=== PATIENT | female | born 1935 | race Caucasian/White ===

== ENCOUNTER 2022-06-01 17:43 | Emergency (ER) | payer OTHER, MEDICAID ==
[~2022-06-01] VITALS: Ht 165.1 cm; Wt 61.2 kg
[2022-06-01 18:00] VITALS: BP 146/70
--- NOTE | 2022-06-01 18:07 | NUR ---
86/F BIBA FROM [facility] D/T RASH NOTED TO RIGHT SIDE OF FACE BY STAFF. PER EMS, PT AT BASELINE GCS 14 WITH AAO2. PT FACESHEET OR CLINICALS NOT PROVIDED. UNK HX OR ALLERGY. PT IN NO ACUTE DISTRESS, AMBULATORY. ON PILOT CAPTAIN PMH: UNKNOWN.
--- NOTE | 2022-06-01 18:14 | NUR ---
SPOKE WITH OTTONIEL SCHMIDT. PER STAFF, WILL FAX OVER CLINICALS.
--- NOTE | 2022-06-01 18:15 | NUR ---
SIX ROUND RED BUMPS NOTED TO RIGHT SIDE OF HEAD. ERMD AWARE
[2022-06-01] MEDS ORDERED: CEPH-588 PO (18:36)
[2022-06-01] MEDS ORDERED: HYD1C TP (18:36)
--- NOTE | 2022-06-01 18:47 | NUR ---
ATTEMPTED TO GIVE REPORT TO [facility] FOR PT DC. NO ANSWER X2.
--- NOTE | 2022-06-01 18:51 | NUR ---
SPOKE WITH SILAS FROM [facility] FOR DC. PER [facility] TRANSPORTATION ARRANGEMENT NOT AVAILABLE
--- NOTE | 2022-06-01 19:11 | NUR ---
Patient able to walk with steady gait and able to sit well.
--- NOTE | 2022-06-01 19:34 | NUR ---
Spoke with [facility] staff, Patient will transport to facility via [employer] and request assitant when patient will arrive to facility.
[2022-06-01 20:11] VITALS: BP 132/70
--- NOTE | 2022-06-01 20:11 | NUR ---
Patient D/C to facility and transfer back via [employer].
== END 2022-06-01 20:11 | disposition home or self-care (01) ==
LOC: MED 17:43
DX: S00.86XA Insect bite (nonvenomous) of other part of head, initial encounter (principal); L03.211 Cellulitis of face; Z79.899 Other long term (current) drug therapy; W57.XXXA Bitten or stung by nonvenomous insect and other nonvenomous arthropods, initial encounter; Y93.89 Activity, other specified; Y92.89 Other specified places as the place of occurrence of the external cause; Y99.8 Other external cause status
CPT/HCPCS: 99283

== ENCOUNTER 2022-06-20 15:46 | Inpatient (IN) | payer OTHER, MEDICAID ==
[~2022-06-20] VITALS: Ht 177.8 cm; Wt 67.6 kg
[~2022-06-20 15:46] MED LIST: CEPH-588 PO; HYD1C TP
[2022-06-20 16:27] VITALS: BP 143/71
--- NOTE | 2022-06-20 16:32 | NUR ---
BIBA to bed 14
--- NOTE | 2022-06-20 16:35 | NUR ---
86 y/o F BIBA from [facility] referred for UTI. Per EMS, staff states vaginal bleeding. Unable to complete assessment d/t mentation. A&Ox1 to name normal baseline d/t dementia. Non-ambulatory, diapered. PMH: HTN, HLD, Afib, CHF, CKD, hypothyroidism, dementia, depression Meds: Tylenol, levothyroxine, metoprolol Allergies: bactrim, sulfa
--- NOTE | 2022-06-20 16:39 | NUR ---
Called [facility] spoke with Sapna who states she may possibly have a UTI; states staff noted vaginal bleeding while changing her pad earlier today. Staff states patient without pain prior to transport.
[2022-06-20 18:07] LABS: BASOPHILS # (AUTO) 0.1 K/uL (0.00-0.22); BASOPHILS % (AUTO) 1.4 % (0.0-2.0); EOSINOPHILS # (AUTO) 0.2 K/uL (0-0.4); EOSINOPHILS % (AUTO) 2.7 % (0.0-4.0); HEMATOCRIT 39.7 % (36-48); HEMOGLOBIN 13.5 g/dL (12.0-16.0); LYMPHOCYTES # (AUTO) 2.5 K/uL (2.5-16.5); LYMPHOCYTES % (AUTO) 36.5 % (20.5-51.1); MEAN CORPUSCULAR HEMOGLOBIN 32 pg (27-31); MEAN CORPUSCULAR HGB CONC 34 g/dL (33-37); MEAN CORPUSCULAR VOLUME 93.1 fL (80-94); MONOCYTES # (AUTO) 0.7 K/uL (0.8-1.0); MONOCYTES % (AUTO) 10.2 % (1.7-9.3); NEUTROPHILS # (AUTO) 3.3 K/uL (1.8-7.7); NEUTROPHILS % (AUTO) 49.2 % (42.2-75.2); PLATELET COUNT (AUTO) 265 K/uL (140-450); RED BLOOD CELL COUNT(AUTO) 4.26 MIL/uL (4.20-5.40); RED CELL DISTRIBUTION WIDTH 13.9 % (11.6-13.7); WHITE BLOOD COUNT (AUTO) 6.8 K/uL (4.8-10.8)
--- NOTE | 2022-06-20 18:20 | NUR ---
Catherine hygiene performed; diaper changed and new chucks applied. All pt needs met.
--- NOTE | 2022-06-20 18:20 | NUR ---
# 6 FR Straight catheter with utilizing sterile technique. Immediate return of 4 ml clear/brown urine noted. Pt tolerated procedure well.
[2022-06-20 18:23] LABS: ANION GAP 14.2 (8-16); CARBON DIOXIDE 22.6 mmol/L (21-32); CHLORIDE 109 mmol/L (98-107); CREATININE 0.7 mg/dL (0.6-1.3); GLUCOSE 87 mg/dL (74-106); POTASSIUM 3.8 mmol/L (3.5-5.1); SODIUM SERUM 142 mmol/L (136-145); UREA NITROGEN, BLOOD 19 mg/dL (7-18)
--- NOTE | 2022-06-20 18:27 | NUR ---
MURPHY handed to CPT Bibi at ER bedside
[2022-06-20 18:40] LABS: APPEARANCE,URINE CLOUDY (CLEAR); BILIRUBIN,URINE 2+ (NEGATIVE); BLOOD, URINE 3+ (NEGATIVE); COLOR,URINE RED (YELLOW); LEUKOCYTE ESTERASE ,URINE 2+ (NEGATIVE); NITRITE, URINE POSITIVE (NEGATIVE); PH,URINE 7.5 (5.0-9.0); UGLUCOSE TRACE (NEGATIVE)
[2022-06-20 18:53] LABS: RBC,URINE 20-50 /HPF (0-5); WBC,URINE 20-60 /HPF (0-5)
[2022-06-20 18:54] LABS: OTHER CASTS, URINE None Seen /LPF (None Seen)
--- NOTE | 2022-06-20 19:27 | NUR ---
Report given to DAVID Chamberlain.
[2022-06-20] MEDS ORDERED: cefTRIAXone 1,000 MG VIAL ONE (19:48)
[2022-06-20] MEDS ORDERED: OLANZapine 10 MG VIAL IM ONE (21:05)
[2022-06-20] MEDS ORDERED: ONDANSETRON 4 MG/2 ML VIAL IVP PRN (21:10)
[2022-06-20] MEDS ORDERED: POTASSIUM CHLORIDE 10 MEQ TABER PO PRN (21:10)
[2022-06-20] MEDS ORDERED: ZOLPIDEM 10 MG TAB PO PRN (21:10)
[2022-06-20] MEDS ORDERED: MORPHINE SULFATE 2 MG/ML SYR IVP PRN (21:10)
[2022-06-20] MEDS ORDERED: MAG SULF 2000 MG/WATER PREMIX 50 ML IV PRN (21:10)
[2022-06-20] MEDS ORDERED: ACETAMINOPHEN 325 MG TAB PO PRN (21:10)
[2022-06-20] MEDS ORDERED: DOCUSATE SODIUM 100 MG GELCAP PO PRN (21:10)
[2022-06-20] MEDS ORDERED: hydrALAZINE 20 MG/ML VIAL IVP PRN (21:15)
[2022-06-20] MEDS ORDERED: WATER STERILE 10 ML MC ONE (21:47)
[2022-06-20 22:15] VITALS: BP 157/77
--- NOTE | 2022-06-20 22:22 | NUR ---
GET THE REPORT FROM ER NURSE BELTRAN , PATIENT IS ALERT ORIENTED X 1 , ALL FALL PRECAUTION MEASURE ARE IN PLACE, VITAL SIGN IS WITHIN THE NORMAL RANGE, NO ANY COMPLAIN OF PAIN OR SHORTNESS OF BREATH AT THIS TIME, CALL LIGHT IS WITHIN THE REACH, WILL CONTINUE TO MONITOR PATIENT.
--- NOTE | 2022-06-20 22:32 | NUR ---
Patient will be admitted to care of Dr. Thibodeaux. Admited to telemetry. Will go to room 121A. Belongings list completed. bedside report given to DAVID Black.
[2022-06-20] MEDS: LORazepam 2 MG/ML VIAL IVP PRN (23:20)
--- NOTE | 2022-06-20 23:23 | NUR ---
PATIENT IS GETTING AGITATED , GAVE ATIVAN 2MG IV PRN PER DOCTOR ORDER, VITAL SIGN IS WITHIN THE NORMAL RANGE,CALL LIGHT IS WITHIN THE REACH, WILL CONTINUE TO MONITOR PATIENT.
[2022-06-21] VITALS: BP 155/78
--- NOTE | 2022-06-21 00:55 | NUR ---
PATIENT IS LYING ON BED, NO ANY COMPLAIN OF PAIN OR SHORTNESS OF BREATH AT THIS TIME, VITAL SIGN IS WITHIN THE NORMAL RANGE, CALL LIGHT IS WITHIN THE REACH, WILL CONTINUE TO MONITOR PATIENT.
[2022-06-21 04:00] VITALS: BP 149/68
--- NOTE | 2022-06-21 04:54 | NUR ---
REASSESS PATIENT BLOOD PRESSURE AND CAME BACK NORMAL, CALL LIGHT IS WITHIN THE REACH, WILL CONTINUE TO MONITOR PATIENT.
--- NOTE | 2022-06-21 04:58 | NUR ---
VITAL SIGN IS WITHIN THE NORMAL RANGE, ALL SCHEDULE MEDICATION IS GIVEN PER DOCTOR ORDER, CALL LIGHT IS WITHIN THE REACH, WILL CONTINUE TO MONITOR PATIENT.
[2022-06-21 06:08] LABS: BASOPHILS # (AUTO) 0.1 K/uL (0.00-0.22); BASOPHILS % (AUTO) 1.2 % (0.0-2.0); EOSINOPHILS # (AUTO) 0.2 K/uL (0-0.4); EOSINOPHILS % (AUTO) 2.5 % (0.0-4.0); HEMATOCRIT 41.6 % (36-48); HEMOGLOBIN 14.1 g/dL (12.0-16.0); LYMPHOCYTES # (AUTO) 2.2 K/uL (2.5-16.5); LYMPHOCYTES % (AUTO) 28.4 % (20.5-51.1); MEAN CORPUSCULAR HEMOGLOBIN 32 pg (27-31); MEAN CORPUSCULAR HGB CONC 34 g/dL (33-37); MEAN CORPUSCULAR VOLUME 93.1 fL (80-94); MONOCYTES # (AUTO) 0.7 K/uL (0.8-1.0); MONOCYTES % (AUTO) 9.4 % (1.7-9.3); NEUTROPHILS # (AUTO) 4.6 K/uL (1.8-7.7); NEUTROPHILS % (AUTO) 58.5 % (42.2-75.2); PLATELET COUNT (AUTO) 269 K/uL (140-450); RED BLOOD CELL COUNT(AUTO) 4.47 MIL/uL (4.20-5.40); RED CELL DISTRIBUTION WIDTH 14.3 % (11.6-13.7); WHITE BLOOD COUNT (AUTO) 7.9 K/uL (4.8-10.8)
[2022-06-21 06:18] LABS: ANION GAP 15.3 (8-16); CHLORIDE 110 mmol/L (98-107); CREATININE 0.8 mg/dL (0.6-1.3); GLUCOSE 95 mg/dL (74-106); POTASSIUM 3.3 mmol/L (3.5-5.1); SODIUM SERUM 147 mmol/L (136-145); UREA NITROGEN, BLOOD 15 mg/dL (7-18)
--- NOTE | 2022-06-21 07:30 | NUR ---
ENDORSE PATIENT TO DAY RN FOR CONTINUITY OF CARE. PATIENT STABLE. SIGNING OFF.
[2022-06-21 08:00] VITALS: BP 158/69
[2022-06-21] MEDS ORDERED: NACL 0.45% 1,000 ML IV ONE (10:05)
[2022-06-21] MEDS ORDERED: VITB12 PO (10:42)
[2022-06-21] MEDS ORDERED: DABI150C PO (10:42)
[2022-06-21] MEDS ORDERED: LACT-103 PO (10:42)
[2022-06-21] MEDS ORDERED: ACET-10509 PO (10:42)
[2022-06-21] MEDS ORDERED: ALUM355S50 PO (10:42)
[2022-06-21] MEDS ORDERED: MIRABULK PO (10:42)
[2022-06-21] MEDS ORDERED: LEVO0.083 PO (10:42)
[2022-06-21] MEDS ORDERED: METO50TE2 PO (10:42)
[2022-06-21] MEDS ORDERED: CHOL500040 PO (10:42)
[2022-06-21] MEDS: LORazepam 2 MG/ML VIAL IVP PRN (10:47)
--- NOTE | 2022-06-21 10:48 | NUR ---
CONTINUOUSLY TRYING TO GET OUT OF BED. ATIVAN PRN GIVEN AT THIS TIME. WILL CONTINUE TO MONITOR.
--- NOTE | 2022-06-21 11:02 | NUR ---
PATIENT HAS BEEN SCREENED AND CATEGORIZED MODERATE NUTRITION RISK. PATIENT WILL BE SEEN WITHIN 3-5 DAYS OF ADMISSION. 06/23/[address]
[2022-06-21] MEDS ORDERED: HYDROCORTISONE 1% CRM 30 GM TUBE TP PRN (11:15)
[2022-06-21 12:00] VITALS: BP 134/71
--- NOTE | 2022-06-21 14:00 | NUR ---
PATIENT LYING DOWN IN BED SLEEPING, NO DISTRESS NOTED. WILL CONTINUE TO MONITOR.
[2022-06-21 16:00] VITALS: BP 122/69
--- NOTE | 2022-06-21 17:11 | NUR ---
K: 3.3, POTASSIUM 40 MEQ PO PRN GIVEN AT THIS TIME. WILL CONTINUE TO MONITOR.
--- NOTE | 2022-06-21 19:34 | NUR ---
RECEIVED PT ENDORSEMENT FROM DAY SHIFT NURSE FOR CONTINUITY OF CARE. PT IS ON BED, VERBALLY RESPONSIVE AND CONFUSE. PT IS ON CARDIAC DIET. PT IS INCONTINENT. IV SALINE LOCK ON LEFT FOREARM 20G INTACT AND PATENT. IV FLUID 1/2 NS INFUSING WELL AT 100ML/HR. NO SIGN/SYMPTOM OF INFECTION. CONTINUE MONITORING.
--- NOTE | 2022-06-21 19:35 | NUR ---
GAVE REPORT TO DRILL SHARPENER NURSE FOR CONTINUITY OF CARE. PATIENT IN STABLE CONDITION.
[2022-06-21 20:00] VITALS: BP 152/93
[2022-06-21] MEDS: DABIGATRAN ETEXILATE MESYLAT 75 MG CAP PO SCH (21:55)
--- NOTE | 2022-06-21 22:00 | NUR ---
PT IS NON COOPERATIVE IN TAKING MEDICATION BUT AGREE TO TAKE MEDICATION WITH PUDDING.
[2022-06-22] VITALS: BP 126/90
--- NOTE | 2022-06-22 00:40 | NUR ---
PT IS SLEEPING WELL. NO SOB OR DISTRESS.
[2022-06-22 04:00] VITALS: BP 140/88
--- NOTE | 2022-06-22 05:00 | NUR ---
GIVING PERSONAL CARE TO PT, PT TOLERATES WELL. NO SOB OR DISTRESS.
[2022-06-22 06:35] LABS: BASOPHILS # (AUTO) 0.1 K/uL (0.00-0.22); BASOPHILS % (AUTO) 1.1 % (0.0-2.0); EOSINOPHILS # (AUTO) 0.2 K/uL (0-0.4); EOSINOPHILS % (AUTO) 2.3 % (0.0-4.0); HEMATOCRIT 41.1 % (36-48); LYMPHOCYTES # (AUTO) 1.4 K/uL (2.5-16.5); LYMPHOCYTES % (AUTO) 17.8 % (20.5-51.1); MEAN CORPUSCULAR HEMOGLOBIN 32 pg (27-31); MEAN CORPUSCULAR HGB CONC 34 g/dL (33-37); MEAN CORPUSCULAR VOLUME 93.1 fL (80-94); MONOCYTES # (AUTO) 0.9 K/uL (0.8-1.0); MONOCYTES % (AUTO) 10.8 % (1.7-9.3); NEUTROPHILS # (AUTO) 5.4 K/uL (1.8-7.7); PLATELET COUNT (AUTO) 262 K/uL (140-450); RED BLOOD CELL COUNT(AUTO) 4.42 MIL/uL (4.20-5.40); RED CELL DISTRIBUTION WIDTH 14.1 % (11.6-13.7); WHITE BLOOD COUNT (AUTO) 7.9 K/uL (4.8-10.8)
[2022-06-22 07:04] LABS: CARBON DIOXIDE 24.4 mmol/L (21-32); CHLORIDE 108 mmol/L (98-107); CREATININE 0.6 mg/dL (0.6-1.3); GLUCOSE 91 mg/dL (74-106); POTASSIUM 4.4 mmol/L (3.5-5.1); SODIUM SERUM 144 mmol/L (136-145); UREA NITROGEN, BLOOD 12 mg/dL (7-18)
--- NOTE | 2022-06-22 07:20 | NUR ---
PT IS ON STABLE CONDITION. ALL SAFETY MEASURES ARE IN PLACES. ENDORSED TO DAY SHIFT NURSE FOR CONTINUITY OF CARE.
[2022-06-22 08:00] VITALS: BP 150/79
[2022-06-22] MEDS ORDERED: LEVOTHYROXINE 0.088 MG TAB PO SCH (09:00)
[2022-06-22] MEDS ORDERED: POLYETHYLENE GLYCOL 17 GM/PKT PO SCH (09:00)
[2022-06-22] MEDS ORDERED: METOPROLOL SUCCINATE 50 MG TABER PO SCH (09:00)
[2022-06-22] MEDS: DABIGATRAN ETEXILATE MESYLAT 75 MG CAP PO SCH (09:53)
[2022-06-22 12:00] VITALS: BP 150/110
[2022-06-22] MEDS ORDERED: LEVO-481 PO (12:40)
--- NOTE | 2022-06-22 15:57 | NUR ---
DC PLANNING: PER ZORAIDA ALCANTARA [facility] HAS NO TRANSPORT AT THIS TIME ARRANGED TRANSPORT WITH [employer] TIME 4:45 PM . NOTIFIED ZORAIDA HERNANDEZ. CM TO FOLLOW
[2022-06-22 16:00] VITALS: BP 136/67
--- NOTE | 2022-06-22 16:41 | NUR ---
SPOKE TO MARICRUZAIR SCHMIDT ABOUT TRANSPORT FOR PATIENT ARRANGEMENT FOR 906.
--- NOTE | 2022-06-22 16:59 | NUR ---
PATIENT DISCHARGE WITH A COPY OF DISCHARGE INSTRUCTIONS AND ALL BELONGINGS. INTACT 22 GAUGE IV CATHETER REMOVAL FROM LEFT FOREARM. IDENTIFICATION BRACELET REMOVAL. MEDICAL TRANSPORT TEAM MEMBERS ASSISTANCE TO DISCHARGE THE PATIENT TO ASSISTED LIVING [facility], [facility].
== END 2022-06-22 16:55 | disposition home or self-care (01) | DRG 689 ==
LOC: MED 15:46 → MTU 21:08
PROVIDERS: ADMIT Family Medicine; ATTEND Family Medicine
DX: N39.0 Urinary tract infection, site not specified (principal); G93.41 Metabolic encephalopathy; E87.0 Hyperosmolality and hypernatremia; I13.0 Hypertensive heart and chronic kidney disease with heart failure and stage 1 through stage 4 chronic kidney disease, or unspecified chronic kidney disease; E78.5 Hyperlipidemia, unspecified; I48.91 Unspecified atrial fibrillation; E03.9 Hypothyroidism, unspecified; F32.A Depression, unspecified; F03.90 Unspecified dementia, unspecified severity, without behavioral disturbance, psychotic disturbance, mood disturbance, and anxiety; E87.6 Hypokalemia; Z20.822 Contact with and (suspected) exposure to COVID-19; I50.9 Heart failure, unspecified; N18.9 Chronic kidney disease, unspecified; Z79.01 Long term (current) use of anticoagulants; Z88.2 Allergy status to sulfonamides; Z88.8 Allergy status to other drugs, medicaments and biological substances; Z79.899 Other long term (current) drug therapy
CPT/HCPCS: 36415; 71045; 80048; 81001; 83735; 85025; 87081; 87086; 96365; 96372; 99285; J0360; J0696; J2060; J3490; J7060

== ENCOUNTER 2022-07-01 14:25 | Inpatient (IN) | payer OTHER, MEDICAID ==
[~2022-07-01] VITALS: Ht 167.6 cm; Wt 63.5 kg
[~2022-07-01 14:25] MED LIST changes: +ACET-10509 PO; +ALUM355S50 PO; -CEPH-588 PO; +CHOL500040 PO; +DABI150C PO; +LACT-103 PO; +LEVO-481 PO; +LEVO0.083 PO; +METO50TE2 PO; +MIRABULK PO; +VITB12 PO
[2022-07-01 14:29] VITALS: BP 150/98
--- NOTE | 2022-07-01 14:35 | NUR ---
BIBA TO BED 3.
--- NOTE | 2022-07-01 14:40 | NUR ---
pt in bed 3, here for generalized weakness and decreased appetite per report. a fib on cm, o2 sat 99% ra, pt oriented to name only, does not respond to any other questions, sr up times 2, awaits md cat.
[2022-07-01 16:10] LABS: BASOPHILS # (AUTO) 0.1 K/uL (0.00-0.22); BASOPHILS % (AUTO) 0.7 % (0.0-2.0); EOSINOPHILS % (AUTO) 0.4 % (0.0-4.0); HEMATOCRIT 40.4 % (36-48); HEMOGLOBIN 13.8 g/dL (12.0-16.0); LYMPHOCYTES # (AUTO) 2.2 K/uL (2.5-16.5); LYMPHOCYTES % (AUTO) 24.1 % (20.5-51.1); MEAN CORPUSCULAR HEMOGLOBIN 31 pg (27-31); MEAN CORPUSCULAR HGB CONC 34 g/dL (33-37); MONOCYTES # (AUTO) 0.8 K/uL (0.8-1.0); MONOCYTES % (AUTO) 9.4 % (1.7-9.3); NEUTROPHILS # (AUTO) 5.9 K/uL (1.8-7.7); NEUTROPHILS % (AUTO) 65.4 % (42.2-75.2); PLATELET COUNT (AUTO) 288 K/uL (140-450); RED BLOOD CELL COUNT(AUTO) 4.39 MIL/uL (4.20-5.40); RED CELL DISTRIBUTION WIDTH 13.8 % (11.6-13.7)
[2022-07-01 16:18] LABS: APPEARANCE,URINE SL CLOUDY (CLEAR); BILIRUBIN,URINE NEGATIVE (NEGATIVE); BLOOD, URINE 3+ (NEGATIVE); COLOR,URINE YELLOW (YELLOW); LEUKOCYTE ESTERASE ,URINE 2+ (NEGATIVE); NITRITE, URINE NEGATIVE (NEGATIVE); UGLUCOSE NEGATIVE (NEGATIVE)
[2022-07-01 16:26] LABS: ALBUMIN 3.4 g/dL (3.4-5.0); ANION GAP 18.6 (8-16); ASPARTATE AMINOTRANSFERASE 18 U/L (15-37); CARBON DIOXIDE 19.7 mmol/L (21-32); CHLORIDE 107 mmol/L (98-107); GLUCOSE 92 mg/dL (74-106); POTASSIUM 3.3 mmol/L (3.5-5.1); SODIUM SERUM 142 mmol/L (136-145); TOTAL BILIRUBIN 1.3 mg/dL (0.0-1.0); UREA NITROGEN, BLOOD 19 mg/dL (7-18)
[2022-07-01] MEDS ORDERED: cefTRIAXone 2,000 MG in DEXTROSE 5% 100 ML IV ONE (16:50)
[2022-07-01 17:02] LABS: ACETAMINOPHEN < 0.5 ug/ml (10-30); SALICYLATE < 2.8 mg/dL (2.8-20.0)
[2022-07-01 17:06] LABS: RBC,URINE TOO NUMEROUS TO COUN /HPF (0-5); WBC,URINE TOO MANY TO COUNT /HPF (0-5)
[2022-07-01 17:07] LABS: TRICHOMONAS,URINE None Seen /HPF (None Seen); YEAST,URINE Few /HPF (None Seen)
[2022-07-01 17:09] LABS: CALCIUM OXALATE CRYSTALS,UR 0-10 /HPF (None Seen)
[2022-07-01] MEDS ORDERED: cefTRIAXone 2,000 MG VIAL ONE (17:11)
[2022-07-01] MEDS ORDERED: LORazepam 2 MG/ML VIAL IVP ONE ×2 (17:40→21:30)
[2022-07-01] MEDS ORDERED: NACL 0.9% 1,000 ML IV ONE (17:40)
--- NOTE | 2022-07-01 17:55 | NUR ---
pt restless, attempting to get off the bed, notified, ativan 0.5 mg ivp given per dr order
--- NOTE | 2022-07-01 18:09 | NUR ---
pt to ct via dionicio
--- NOTE | 2022-07-01 20:06 | NUR ---
pt is more confused. tried to get off the bed. nurse is monitoring the pt i nthe bedside now
--- NOTE | 2022-07-01 22:35 | NUR ---
PATIENT WAS ADMITTED TO [facility]ST UNIT FROM ER AWAKE , CONFUSED. NO S/S OF RESPIRATORY DISTRESS. BREATHING NORMAL WITH SYMMETRICAL RISE AND FALL OF THE CHEST. SKIN INTACT AND WARM TO TOUCH. MRSA SCREENING DONE. CORTES CATHETER IN PLACE DRAINING DARK KARY COLORED URINE. DENIES PAIN. ALL SAFETY PRECAUTIONS ARE IN PLACE. CALL LIGHT WITHIN REACH.
[2022-07-01] MEDS: NACL 0.9% 1,000 ML IV SCH (23:00)
--- NOTE | 2022-07-01 23:26 | NUR ---
Patient will be admitted to care of [facility]. Admited to telemetry. Will go to room 121 A. Belongings list completed. Report to cecil HERNANDEZ.
[2022-07-02 04:00] VITALS: BP 109/60
--- NOTE | 2022-07-02 07:12 | NUR ---
ENDORSED PATIENT TO MORNING SHIFT NURSE ZORAIDA FOR CONTINUITY OF CARE.
[2022-07-02 08:00] VITALS: BP 110/55
[2022-07-02 12:00] VITALS: BP 147/57
[2022-07-02] MEDS: NACL 0.9% 1,000 ML IV SCH (14:13)
[2022-07-02] MEDS ORDERED: POTASSIUM CHLORIDE 10 MEQ TABER PO SCH (15:04)
[2022-07-02 16:00] VITALS: BP 143/57
[2022-07-02] MEDS ORDERED: ONDANSETRON 4 MG/2 ML VIAL IVP PRN (18:05)
[2022-07-02] MEDS ORDERED: MORPHINE SULFATE 2 MG/ML SYR IVP PRN (18:05)
[2022-07-02] MEDS ORDERED: POTASSIUM CHLORIDE 10 MEQ TABER PO ONE (18:10)
--- NOTE | 2022-07-02 19:30 | NUR ---
RECEIVED REPORT FROM DAY SHIFT NURSE ZORAIDA FOR CONTINUITY OF CARE. PATIENT IS A&O X1. PATIENT IS ON ROOM AIR, BREATHING IS NORMAL WITH SYMMETRICAL RISE AND FALL OF CHEST. IV IS A 20G RAC AND A 22G RFA; RFA RUNNING NS AT 50. PATIENT IS AWAKE, LYING IN SUPINE POSITION. BED IS IN LOWEST POSITION, WHEELS LOCKED, CALL LIGHT IN PLACE. WILL CONTINUE TO OBSERVE PATIENT.
[2022-07-02 20:00] VITALS: BP 157/72
[2022-07-02 20:02] LABS: BASOPHILS % (AUTO) 0.5 % (0.0-2.0); EOSINOPHILS # (AUTO) 0.2 K/uL (0-0.4); EOSINOPHILS % (AUTO) 1.9 % (0.0-4.0); HEMATOCRIT 37.7 % (36-48); HEMOGLOBIN 12.6 g/dL (12.0-16.0); LYMPHOCYTES # (AUTO) 0.5 K/uL (2.5-16.5); LYMPHOCYTES % (AUTO) 5.3 % (20.5-51.1); MEAN CORPUSCULAR HEMOGLOBIN 31 pg (27-31); MEAN CORPUSCULAR HGB CONC 33 g/dL (33-37); MEAN CORPUSCULAR VOLUME 93.1 fL (80-94); MONOCYTES # (AUTO) 0.8 K/uL (0.8-1.0); MONOCYTES % (AUTO) 8.2 % (1.7-9.3); NEUTROPHILS # (AUTO) 8.1 K/uL (1.8-7.7); NEUTROPHILS % (AUTO) 84.1 % (42.2-75.2); PLATELET COUNT (AUTO) 236 K/uL (140-450); RED BLOOD CELL COUNT(AUTO) 4.05 MIL/uL (4.20-5.40); WHITE BLOOD COUNT (AUTO) 9.7 K/uL (4.8-10.8)
[2022-07-02 20:15] LABS: ALBUMIN 2.8 g/dL (3.4-5.0); ANION GAP 11.3 (8-16); ASPARTATE AMINOTRANSFERASE 13 U/L (15-37); CARBON DIOXIDE 20.9 mmol/L (21-32); CHLORIDE 113 mmol/L (98-107); CREATININE 0.9 mg/dL (0.6-1.3); GLUCOSE 117 mg/dL (74-106); POTASSIUM 4.2 mmol/L (3.5-5.1); SODIUM SERUM 141 mmol/L (136-145); UREA NITROGEN, BLOOD 15 mg/dL (7-18)
--- NOTE | 2022-07-02 20:30 | NUR ---
OBTAINED PATIENT'S VITALS. VITALS WERE: BP 157/72, TEMP 95.5, HR 85, O2 97.0, RR 18. PATIENT KEEPS GRADUALLY MOVING HER LEGS CLOSER TOWARD THE RAILING AND THEN TRIES TO LIFT THEM OFF THE BED. PATIENT IS CONFUSED, BUT FOLLOWS COMMANDS WHEN TOLD TO PLEASE PUT HER LEGS BACK TOWARD THE CENTER OF THE BED. THEN PATIENT STARTS GRADUALLY MOVING HER LEGS TOWARD THE RAILING AGAIN (WHICH TAKES HER ABOUT 15-20 MINUTES TO DO). PATIENT'S BREATHING IS NORMAL WITH SYMMETRICAL RISE AND FALL OF CHEST. WILL CONTINUE TO OBSERVE PATIENT.
--- NOTE | 2022-07-02 23:00 | NUR ---
HAVE BEEN SITTING IN DOORWAY MONITORING PATIENT. PATIENT'S LEGS ARE RESTLESS AND SHE FREQUENTLY ATTEMPTS TO PLACE HER LEGS OUTSIDE OF THE BED. HOWEVER, PATIENT CONTINUES TO FOLLOW COMMANDS; WHEN ASKED TO PLACE HER LEGS BACK TO THE CENTER OF THE BED, PATIENT COMPLIES. PATIENT'S BREATHING IS NORMAL WITH SYMMETRICAL RISE AND FALL OF CHEST. WILL CONTINUE TO OBSERVE PATIENT.
[2022-07-03] VITALS: BP 176/75
--- NOTE | 2022-07-03 01:00 | NUR ---
OBTAINED PATIENT'S 0000 VITALS. VITALS WERE: BP 176/75, HR 99, O2 99. RR 18, TEMP 97.5. PATIENT IS AWAKE AND CONTINUES TO BE RESTLESS MOVING HER LEGS UP AND DOWN, SLOWLY MOVING THEM TOWARD THE SIDE OF THE BED. HOWEVER, PATIENT IS GOOD ABOUT OBEYING COMMAND TO MOVE LEGS BACK TO THE CENTER OF THE BED. PATIENT'S BREATHING IS NORMAL WITH SYMMETRICAL RISE AND FALL OF CHEST. WILL CONTINUE TO OBSERVE PATIENT.
[2022-07-03] MEDS: NACL 0.9% 1,000 ML IV SCH (02:39)
--- NOTE | 2022-07-03 02:45 | NUR ---
PATIENT'S IVF WERE CHANGED BY CHARGE NURSE YOANNA. PATIENT IS RUNNING NS AT 50ML. PATIENT IS AWAKE AND CONTINUES TO MOVE LEGS TOWARD THE SIDE OF THE BED. PATIENT STILL OBEYS COMMANDS TO MOVE LEGS BACK TO THE CENTER OF THE BED. PATIENT'S BREATHING IS NORMAL WITH SYMMETRICAL RISE AND FALL OF CHEST. WILL CONTINUE TO OBSERVE PATIENT.
[2022-07-03 04:00] VITALS: BP 164/77
[2022-07-03] MEDS: LEVOTHYROXINE 0.088 MG TAB PO SCH (05:31)
[2022-07-03 05:39] LABS: BASOPHILS # (AUTO) 0.1 K/uL (0.00-0.22); EOSINOPHILS # (AUTO) 0.3 K/uL (0-0.4)
[2022-07-03 05:41] LABS: EOSINOPHILS % (AUTO) 2.9 % (0.0-4.0); HEMATOCRIT 35.7 % (36-48); HEMOGLOBIN 12.5 g/dL (12.0-16.0); LYMPHOCYTES # (AUTO) 1.5 K/uL (2.5-16.5); LYMPHOCYTES % (AUTO) 14.6 % (20.5-51.1); MEAN CORPUSCULAR HEMOGLOBIN 32 pg (27-31); MEAN CORPUSCULAR HGB CONC 35 g/dL (33-37); MEAN CORPUSCULAR VOLUME 92.7 fL (80-94); MONOCYTES # (AUTO) 1.1 K/uL (0.8-1.0); MONOCYTES % (AUTO) 10.8 % (1.7-9.3); NEUTROPHILS # (AUTO) 7.4 K/uL (1.8-7.7); NEUTROPHILS % (AUTO) 70.7 % (42.2-75.2); PLATELET COUNT (AUTO) 267 K/uL (140-450); RED BLOOD CELL COUNT(AUTO) 3.85 MIL/uL (4.20-5.40); RED CELL DISTRIBUTION WIDTH 13.8 % (11.6-13.7); WHITE BLOOD COUNT (AUTO) 10.5 K/uL (4.8-10.8)
--- NOTE | 2022-07-03 05:41 | NUR ---
OBTAINED PATIENT'S 0400 VITALS. VITALS WERE: BP 164/77, HR 88, O2 94, RR 18, TEMP 96.0. ADMINISTERED 0630 MEDICATION TO PATIENT. MEDICATION ADMINISTERED SUCCESSFULLY WITHOUT ANY ISSUES WITH SWALLOWING. PATIENT IS AWAKE, LYING IN SEMI-FOWLERS POSITION. PATIENT'S IV IS RUNNING NS AT 50. BREATHING IS NORMAL WITH SYMMETRICAL RISE AND FALL OF CHEST. BED IS IN LOWEST POSITION, WHEELS LOCKED, CALL LIGHT IN PLACE. WILL CONTINUE TO OBSERVE PATIENT.
--- NOTE | 2022-07-03 07:08 | NUR ---
ASSUMED CONTINUITY OF CARE. NO SIGNS OF ACUTE DISTRESS NOTED. INITIAL ASSESSMENT DONE. RE-ORIENTED TO EVENTS AND SURROUNDINGS. FALL PRECAUTION APPLIED. CALL LIGHT WITHIN REACH.
--- NOTE | 2022-07-03 07:08 | NUR ---
ENDORSED TO DAY SHIFT NURSE KASSANDRA FOR CONTINUITY OF CARE. PATIENT IS STABLE.
--- NOTE | 2022-07-03 07:08 | NUR ---
ASSUMED CONTINUITY OF CARE. RESTING ON BED AT THIS TIME. NO ACUTE DISTRESS NOTED. EXPLAINED DIAGNOSIS, PLAN OF CARE, PAIN MANAGEMENT TEACHING, USE OF CALL LIGHT/BED/TV/BATHROOM. VERBALIZED UNDERSTANDING. FALL PRECAUTION APPLIED. CALL LIGHT WITHIN REACH. Addendum: 07/03/22 at 1116 by Henry Conroy LVN LVN ENTERED AT WRONG PATIENT.
[2022-07-03 08:00] VITALS: BP 158/53
--- NOTE | 2022-07-03 08:29 | NUR ---
DR. PANDYA CAME, INFORMED OF PT. LATEST WBC 25.5. GOT AN ORDER FOR VANCOMYCIN PER PHARMACY PROTOCOL. READ BACK AND VERIFIED. Addendum: 07/03/22 at 1115 by Henry Conroy LVN LVN WRONG PATIENT.
[2022-07-03] MEDS: METOPROLOL SUCCINATE 50 MG TABER PO SCH (09:15)
--- NOTE | 2022-07-03 10:26 | NUR ---
PATIENT HAS BEEN SCREENED AND CATEGORIZED HIGH NUTRITION RISK. PATIENT WILL BE SEEN WITHIN 1-2 DAYS OF ADMISSION. 07/02/2212/19/[address]
--- NOTE | 2022-07-03 10:49 | NUR ---
INFORMED DR. PANDYA THAT PT. REFUSING TO EAT FOR 2 DAYS SINCE ADMISSION DATE. GOT T.O. ORDER TO CHANGE IVF TO D5 NS AT 50ML/HR.
[2022-07-03] MEDS: DEXT 5% /NACL 0.9% 1,000 ML IV SCH (11:50)
[2022-07-03 12:00] VITALS: BP 150/55
--- NOTE | 2022-07-03 17:14 | NUR ---
07/03/22 RD INITIAL ASSESSMENT COMPLETED PLEASE REFER TO NUTRITION ASSESSMENT UNDER CARE ACTIVITY FOR ESTIMATED NUTRITIONAL NEEDS. 1. RECOMMEND DOWNGRADING TO MECHANICAL SOFT DIET WITH ENSURE 1 X DAY TO HELP INCREASE PO INTAKE -ENSURE 1 X DAY PROVIDES 350 KCALS AND 20 GM PROTEIN DAILY 2. CONSIDER NUTRITION SUPPORT IF AND WHEN MEDICALLY APPROPRIATE 3. RD TO FOLLOW-UP 2-3 DAYS, HIGH RISK REVIEWED BY LUIS [address] RD
--- NOTE | 2022-07-03 19:12 | NUR ---
BEDSIDE REPORT GIVEN TO DECATING MACHINE OPERATOR NURSE. IN STABLE CONDITION. IVF INFUSING WELL.
--- NOTE | 2022-07-03 19:13 | NUR ---
RECEIVED ENDORSEMENT FROM KASSANDRA ZAVALA, PATIENT WAS STABLE DURING SHIFT REPORT. PATIENT ALERT AND CONFUSED. PATIENT WAS STABLE BUT NOT TALKING WHEN NURSING ASKED QUESTIONS OR TALKED WITH PATIENT. NO S/S OF PAIN AT THIS TIME. NO NOTED RESPIRATORY DISTRESS. PATIENT IS BEDBOUND HAS CORTES CATH AND WAS CLEAN . SIDE RAILS UP X 3 FOR ADJUSTMENT AND SAFETY. CALL LIGHT WITHIN REACH. NURSING WILL FREQUENT THE ROOM FOR ANTICIPATED NEEDS. PATIENT IS UNAWARE OF HIS NURSE FOR THE EVENING. [email or web address]
[2022-07-03 20:00] VITALS: BP 152/66
--- NOTE | 2022-07-03 20:00 | NUR ---
Patient's Plan of Care was discussed and reviewed with GAS BLENDER: NILESH STACK
--- NOTE | 2022-07-03 23:01 | NUR ---
PATIENT IV PUMP WAS READING HIGH PRESSURE. PATIENT IV LINE WAS FLUSHED AND THE IV FLUID WAS ABLE TO RUN WITHOUT INCIDENT. PATIENT HAS NO NOTED S/S OF INFILTRATION. NURSING WILL FREQUENT THIS ROOM FOR ANTICIPATED NEEDS. [email or web address]
--- NOTE | 2022-07-03 23:20 | NUR ---
PATIENT MEDICATION WAS EFFECTIVE. PATIENT WAS ASLEEP IN BED WITHOUT INCIDENT. ALL NEEDS MET AT THIS TIME. NURSING WILL CONTINUE TO MONITOR. [email or web address]
--- NOTE | 2022-07-04 02:24 | NUR ---
PATIENT NOTED IN BED ASLEEP. NO NOTED INCIDENT AT THIS TIME. [email or web address]
[2022-07-04 04:00] VITALS: BP 150/69
[2022-07-04] MEDS: LEVOTHYROXINE 0.088 MG TAB PO SCH (06:41)
--- NOTE | 2022-07-04 06:59 | NUR ---
ENDORSED TO KASSANDRA ZAVALA, PATIENT WAS STABLE DURING SHIFT REPORT. [email or web address]
--- NOTE | 2022-07-04 07:00 | NUR ---
ASSUMED CONTINUITY OF CARE. INITIAL ASSESSMENT DONE. RE-ORIENTED TO EVENTS AND SURROUNDINGS. KEEP COMFORTABLE ON BED. FALL PRECAUTION APPLIED. CALL LIGHT WITHIN REACH.
[2022-07-04] MEDS: DEXT 5% /NACL 0.9% 1,000 ML IV SCH ×2 (07:45→09:08)
[2022-07-04 08:00] VITALS: BP 123/71
--- NOTE | 2022-07-04 08:00 | NUR ---
PLAN OF CARE WAS DISCUSSED TO MICROBIAL SPECIALIST NOW.
[2022-07-04] MEDS: METOPROLOL SUCCINATE 50 MG TABER PO SCH (09:06)
[2022-07-04] MEDS: FLUCONAZOLE 200 MG/NS PREMIX 100 ML IV SCH (11:20)
--- NOTE | 2022-07-04 14:15 | NUR ---
[facility] PL[facility] SW ATTEMPTED TO REACH PTS EMERGENCY CONTACT, TORRIE DO, SON [phone]/ [phone]. OUTREACHED TO [facility] TO GATHER COLLATERAL INFORMATION HOWEVER, REMELT FURNACE EXPEDITER UNAVAILABLE TO PROVIDE INFORMATION AND ADMIN IS GONE FOR THE DAY. MOLD CHIPPER REP PROVIDED ADDITIONAL CONTACT INFO, LOUIE LORD [phone]. OUTREACHED TO PTS DIL HOWEVER, NO ANSWER. UNABLE TO LEAVE MESSAGE HAS NOT BEEN SET UP. OUTREACHED TO TORRIE DO FOR THIRD TIME AND A MESSAGE WAS LEFT, REQUESTING A RETURN PHONE CALL.
--- NOTE | 2022-07-04 14:50 | NUR ---
IV ACCESS ON RIGHT FOREARM GAUGE #20 INFILTRATED, D/C AND REMOVED. APPLIED WARM TOWEL AND ELEVATED WITH PILLOWS AFFECTED INFILTRATION SITE. INSERTED NEW IV ACCESS ON LEFT FOREARM GAUGE #22. TOLERATE WELL.
[2022-07-04 16:00] VITALS: BP 110/51
--- NOTE | 2022-07-04 16:35 | NUR ---
CONFUSED AND AGITATED. NON-COMPLIANT TO SAFETY. ABLE TO GET OUT FROM BED AND TRIED TO AMBULATE. PT. UNSTEADY AND HIGH RISK FOR FALL. CLOSELY MONITORED AT THE DOOR.
--- NOTE | 2022-07-04 16:48 | NUR ---
RE-ORIENTED TO EVENTS AND SURROUNDINGS. STILL AGITATED AND CONTINUE TO GET OUT FROM BED. TRIED TO REMOVE IV. NON-COMPLIANT TO SAFETY. INFORMED CHARGE NURSE ZAKIA CORNELL. INFORMED ANTONIO YEE THAT PT. WAS NON-COMPLIANT TO SAFETY AND HIGH RISK FOR FALL.
[2022-07-04] MEDS ORDERED: LORazepam 2 MG/ML VIAL IM/IVP PRN (16:50)
--- NOTE | 2022-07-04 17:05 | NUR ---
PT IS AGITATED AND WAS MEDICATED NOW
--- NOTE | 2022-07-04 17:10 | NUR ---
PT IS RESTLESS, IVPB ANTIBIOTIC SCHEDULED WAS GIVEN NOW.
--- NOTE | 2022-07-04 17:35 | NUR ---
A & O X1. CALM, QUIET, NO AGITATION OBSERVED. RESTING ON BED COMFORTABLY. WILL MONITOR.
--- NOTE | 2022-07-04 19:25 | NUR ---
BEDSIDE REPORT TO -ILYAH -DAVID. IVF INFUSING WELL. IN STABLE CONDITION.
--- NOTE | 2022-07-04 19:25 | NUR ---
RECEIVED ENDORSEMENT FROM DAY SHIFT NURSE FOR CONTINUITY OF CARE. PT IS CONFUSED BUT ANSWER QUESTION WHEN ASKED HER NAME. PT IS ON BED WITH GENERAL WEAKNESS. PT IS FULL CODE. SHE IS AWAKE, NOT ORIENTED. PT IS ON CARDIAC DIET. SHE IS ON CORTES CATH, INTACT AND PATENT. IV FLUID D5NS IS INFUSING WELL AT 50ML/HR. IV LOCK ON LEFT FROEARM 22G INTACT AND PATENT. PT IS ON STANDARD ISOLATION. SKIN INTACT AND PATENT.
--- NOTE | 2022-07-04 22:00 | NUR ---
PT IS CONFUSED, NOT COOPERATIVE WITH VITAL SIGNS CHECKING.
--- NOTE | 2022-07-05 00:30 | NUR ---
PT IS SLEEPING WELL. NOTED STABLE WITH NO SOB OR DISTRESS. NO FACIAL GRIMACING.
--- NOTE | 2022-07-05 02:30 | NUR ---
PT IS ASLEEP, NO FACIAL GRIMACING.
[2022-07-05] MEDS: DEXT 5% /NACL 0.9% 1,000 ML IV SCH ×2 (03:45→08:06)
[2022-07-05 04:00] VITALS: BP 141/64
--- NOTE | 2022-07-05 04:30 | NUR ---
PT IS COOPERATIVE WITH VITAL SIGNS CHECK. PT THEN GO BACK TO SLEEP. PT IS ON STABLE CONDITION.
[2022-07-05] MEDS: LEVOTHYROXINE 0.088 MG TAB PO SCH (06:51)
--- NOTE | 2022-07-05 07:15 | NUR ---
ASSUMED CONTINUITY OF CARE. AWAKE, ALERT, AND ORIENTED X1 WITH CONFUSION NOTED. RE-ORIENTED TO EVENTS AND SURROUNDINGS. FALL PRECAUTION APPLIED. CALL LIGHT WITHIN REACH.
[2022-07-05 08:00] VITALS: BP 114/93
--- NOTE | 2022-07-05 08:00 | NUR ---
Patient's Plan of Care was discussed and reviewed with CASEWORK MANAGER: KASSANDRA RUIZ
[2022-07-05] MEDS: FLUCONAZOLE 200 MG/NS PREMIX 100 ML IV SCH (09:02)
[2022-07-05] MEDS: METOPROLOL SUCCINATE 50 MG TABER PO SCH (09:54)
[2022-07-05] MEDS ORDERED: CEPH-588 PO (10:43)
[2022-07-05] MEDS ORDERED: FLUC200T PO (10:43)
--- NOTE | 2022-07-05 11:05 | NUR ---
CALLED JOVANNY FROM [facility] AT , INFORMED THAT PT. WILL BE D/C TODAY AND ARRANGED TRANSPORT PICK-UP TIME. PER JOVANNY FROM [facility] PT. OCCUPATIONAL THERAPY DIRECTOR TIME IS 1230. INFORMED CHARGE NURSE CHARLOTTE.
--- NOTE | 2022-07-05 12:18 | NUR ---
D/C BACK TO [facility]. PUT PT. ON WHEELCHAIR AND BRING TO MEDICAL TRANSPORT WAITING OUTSIDE AT THE FRONT LOBBY. IN STABLE CONDITION. INFORMED CHARGE NURSE CHARLOTTE.
== END 2022-07-05 12:18 | DRG 871 ==
LOC: MED 14:25 → MTU 18:11
PROVIDERS: ADMIT Family Medicine; ATTEND Family Medicine
DX: A41.9 Sepsis, unspecified organism (principal); G93.41 Metabolic encephalopathy; I13.0 Hypertensive heart and chronic kidney disease with heart failure and stage 1 through stage 4 chronic kidney disease, or unspecified chronic kidney disease; N39.0 Urinary tract infection, site not specified; E86.0 Dehydration; I50.9 Heart failure, unspecified; Z20.822 Contact with and (suspected) exposure to COVID-19; N18.9 Chronic kidney disease, unspecified; I48.91 Unspecified atrial fibrillation; F03.90 Unspecified dementia, unspecified severity, without behavioral disturbance, psychotic disturbance, mood disturbance, and anxiety; E03.9 Hypothyroidism, unspecified; E87.6 Hypokalemia; Z88.2 Allergy status to sulfonamides; Z88.8 Allergy status to other drugs, medicaments and biological substances
CPT/HCPCS: 36415; 70450; 71045; 80053; 81001; 83605; 83880; 84484; 85025; 87040; 87081; 87086; 93005; 96365; 96375; 99285; G0480; J0696; J1450; J2060; J7060

== ENCOUNTER 2022-07-13 15:19 | Inpatient (IN) | payer OTHER, MEDICAID ==
[~2022-07-13] VITALS: Ht 170.2 cm; Wt 58.1 kg
[~2022-07-13 15:19] MED LIST changes: +CEPH-588 PO; +FLUC200T PO
--- NOTE | 2022-07-13 15:21 | NUR ---
Dr. Watkins evaluating patient on [facility] dionicio
--- NOTE | 2022-07-13 15:22 | NUR ---
BIBA BLS TO ER BED 6
[2022-07-13 15:30] VITALS: BP 137/99
--- NOTE | 2022-07-13 15:31 | NUR ---
86 y/o F AMANDA BLS from [facility] for ALOC and no appetite x 2 days. Per EMS, patient's baseline mentation confused d/t dementia. A&OX1 to first name GCS 13 E4 V4 M5. EMS BS 95. Pt diapered without urinary incontinence. Staff denies falls, injury, trauma. canadian bacon tier in place. RR 28 rapid/shallow; SpO2 95% on room air. Bed locked in lowest position, side rails x 1. Unable to complete assessment d/t presentation. PMH: HTN, CHF, CKD, A-Fib, hyperthyroidism, dementia Meds: levothyroxine, metoprolol, miralax, nitrostat, vitamin b-12, lactulose, pradaxa, tylenol Allergies: bactrim, sulfa
--- NOTE | 2022-07-13 15:35 | NUR ---
EMT at bedside for EKG
--- NOTE | 2022-07-13 15:43 | NUR ---
Lab at bedside
--- NOTE | 2022-07-13 15:45 | NUR ---
Covid shankar and flu swabs handed to CPT Cintia at ER bedside
[2022-07-13] MEDS ORDERED: NITR0.4T2 SL (15:53)
[2022-07-13 15:58] LABS: BASOPHILS % (AUTO) 0.8 % (0.0-2.0); EOSINOPHILS % (AUTO) 0.5 % (0.0-4.0); HEMATOCRIT 37.6 % (36-48); LYMPHOCYTES # (AUTO) 1.9 K/uL (2.5-16.5); LYMPHOCYTES % (AUTO) 48.1 % (20.5-51.1); MEAN CORPUSCULAR HEMOGLOBIN 31 pg (27-31); MEAN CORPUSCULAR HGB CONC 35 g/dL (33-37); MEAN CORPUSCULAR VOLUME 90.1 fL (80-94); MONOCYTES # (AUTO) 0.6 K/uL (0.8-1.0); MONOCYTES % (AUTO) 15.4 % (1.7-9.3); NEUTROPHILS # (AUTO) 1.4 K/uL (1.8-7.7); NEUTROPHILS % (AUTO) 35.2 % (42.2-75.2); PLATELET COUNT (AUTO) 236 K/uL (140-450); RED BLOOD CELL COUNT(AUTO) 4.17 MIL/uL (4.20-5.40); RED CELL DISTRIBUTION WIDTH 13.8 % (11.6-13.7)
--- NOTE | 2022-07-13 16:00 | NUR ---
# 9 FR Urinary catheter inserted utilizing sterile technique. Immediate return of 15mL ml clear/yellow urine noted. Urine sample collected and sent to lab. Pt tolerated procedure well. Addendum: 07/13/22 at 1623 by REKHA #8 FR Urinary catheter inserted utilizing sterile technique. Immediate return of 15mL ml clear/yellow urine noted. Urine sample collected and sent to lab. Pt tolerated procedure well.
--- NOTE | 2022-07-13 16:15 | NUR ---
RAD at bedside
[2022-07-13 16:34] LABS: ALBUMIN 2.7 g/dL (3.4-5.0); ANION GAP 10.7 (8-16); ASPARTATE AMINOTRANSFERASE 22 U/L (15-37); CARBON DIOXIDE 30.2 mmol/L (21-32); CHLORIDE 102 mmol/L (98-107); CREATININE 0.8 mg/dL (0.6-1.3); GLUCOSE 109 mg/dL (74-106); SODIUM SERUM 140 mmol/L (136-145); TOTAL BILIRUBIN 0.9 mg/dL (0.0-1.0); UREA NITROGEN, BLOOD 12 mg/dL (7-18)
[2022-07-13 16:36] LABS: POTASSIUM 2.9 mmol/L (3.5-5.1)
[2022-07-13 16:44] LABS: APPEARANCE,URINE CLEAR (CLEAR); BILIRUBIN,URINE 1+ (NEGATIVE); BLOOD, URINE NEGATIVE (NEGATIVE); COLOR,URINE YELLOW (YELLOW); LEUKOCYTE ESTERASE ,URINE TRACE (NEGATIVE); NITRITE, URINE NEGATIVE (NEGATIVE); UGLUCOSE NEGATIVE (NEGATIVE)
[2022-07-13 16:58] LABS: RBC,URINE 0-5 /HPF (0-5)
[2022-07-13] MEDS ORDERED: AZITHROMYCIN 500 MG in DEXTROSE 5% 250 ML IV ONE (17:15)
[2022-07-13] MEDS ORDERED: POTASSIUM CHL 40 MEQ/ D5-1/2NS 1,000 ML IV ONE (17:15)
[2022-07-13] MEDS ORDERED: cefTRIAXone 1,000 MG VIAL ONE (17:27)
[2022-07-13] MEDS ORDERED: AZITHROMYCIN 500 MG INJ VIAL IV ONE (17:27)
[2022-07-13] MEDS ORDERED: POTASSIUM CHLORIDE 40 MEQ, LIDOCAINE 1% 25 MG in NACL 0.9% 250 ML IV ONE (17:35)
--- NOTE | 2022-07-13 17:59 | NUR ---
Patient to CT via gurney.
--- NOTE | 2022-07-13 18:10 | NUR ---
Pt returned from CT via gurney and placed back onto manager monitoring.
[2022-07-13] MEDS ORDERED: MAG SULF 2000 MG/WATER PREMIX 50 ML IV PRN (18:15)
[2022-07-13] MEDS ORDERED: DOCUSATE SODIUM 100 MG GELCAP PO PRN (18:15)
[2022-07-13] MEDS ORDERED: LORazepam 2 MG/ML VIAL IVP PRN (18:15)
[2022-07-13] MEDS ORDERED: ZOLPIDEM 5 MG TAB PO PRN (18:15)
[2022-07-13] MEDS ORDERED: MORPHINE SULFATE 2 MG/ML SYR IVP PRN (18:15)
[2022-07-13] MEDS ORDERED: ONDANSETRON 4 MG/2 ML VIAL IVP PRN (18:15)
[2022-07-13] MEDS ORDERED: POTASSIUM CHLORIDE 10 MEQ TABER PO PRN (18:15)
[2022-07-13] MEDS ORDERED: ACETAMINOPHEN 325 MG TAB PO PRN (18:15)
--- NOTE | 2022-07-13 18:38 | NUR ---
Contacted pharmacy; states making K-John at this time.
--- NOTE | 2022-07-13 19:15 | NUR ---
Report and transfer of care endorsed to DAVID Vick.
--- NOTE | 2022-07-13 20:18 | NUR ---
Change new diaper and cleaned, changed new bedsheet.
--- NOTE | 2022-07-13 20:54 | NUR ---
Patient will be admitted to care of Dr. Landaverde. Admited to med surg. Will go to room 110B. Belongings list completed. Report to Wander HERNANDEZ.
[2022-07-13 21:30] VITALS: BP 146/73
--- NOTE | 2022-07-13 21:30 | NUR ---
PT TRANSPORTED FROM ER VIA GURNEY. PT IS AAOX1 TO NAME. PT IS ON NC 3L. PT NOT IN ANY RESPIRATORY DISTRESS. PT HAS LEFT AC 20 GAUGE AND RIGHT AC 20 GAUGE WITH K-RIDER RUNNING ON RIGHT AC. PT IS ON BED REST. BED AT THE LOWEST POSITION. HEAD OF THE BED RAISED. WILL CONTINUE TO MONITOR THE PT.
[2022-07-13] MEDS: PIPERACILLIN/TAZOBACTAM 2.25 GM in DEXTROSE 5% 50 ML IV SCH (22:11)
--- NOTE | 2022-07-13 22:11 | NUR ---
SCHEDULE MEDICATION GIVEN. NO ADVERSE REACTION NOTED. WILL CONTINUE TO MONITOR THE PT.
--- NOTE | 2022-07-14 00:11 | NUR ---
PT OBSERVED. PT IS AWAKE AND NOT IN ANY RESPIRATORY DISTRESS. PT KEEPS PULLING NC OFF. PT IS SATING 98% WITH NC 3L ON. VITAL SIGNS. STABLE. WILL CONTINUE TO MONITOR THE PT.
[2022-07-14 04:00] VITALS: BP 185/69
[2022-07-14] MEDS ORDERED: PIPERACILLIN/TAZOBACTAM 2.25 GM VIAL IV ONE (04:26)
[2022-07-14] MEDS: PIPERACILLIN/TAZOBACTAM 2.25 GM in DEXTROSE 5% 50 ML IV SCH ×3 (04:30→20:12)
--- NOTE | 2022-07-14 04:30 | NUR ---
SCHEDULE MEDICATION GIVEN. NO ADVERSE REACTION NOTED. WILL CONTINUE TO MONITOR THE PT.
[2022-07-14] MEDS: LEVOTHYROXINE 0.088 MG TAB PO SCH (06:26)
[2022-07-14 06:30] LABS: BASOPHILS % (AUTO) 0.7 % (0.0-2.0); EOSINOPHILS % (AUTO) 0.2 % (0.0-4.0); HEMATOCRIT 37.7 % (36-48); HEMOGLOBIN 12.9 g/dL (12.0-16.0); LYMPHOCYTES # (AUTO) 1.3 K/uL (2.5-16.5); LYMPHOCYTES % (AUTO) 20.5 % (20.5-51.1); MEAN CORPUSCULAR HEMOGLOBIN 31 pg (27-31); MEAN CORPUSCULAR HGB CONC 34 g/dL (33-37); MEAN CORPUSCULAR VOLUME 90.4 fL (80-94); MONOCYTES # (AUTO) 0.6 K/uL (0.8-1.0); MONOCYTES % (AUTO) 9.7 % (1.7-9.3); NEUTROPHILS # (AUTO) 4.3 K/uL (1.8-7.7); NEUTROPHILS % (AUTO) 68.9 % (42.2-75.2); PLATELET COUNT (AUTO) 218 K/uL (140-450); RED BLOOD CELL COUNT(AUTO) 4.18 MIL/uL (4.20-5.40); RED CELL DISTRIBUTION WIDTH 13.8 % (11.6-13.7); WHITE BLOOD COUNT (AUTO) 6.3 K/uL (4.8-10.8)
[2022-07-14] MEDS: hydrALAZINE 10 MG TAB PO PRN ×2 (06:45→20:46)
--- NOTE | 2022-07-14 06:45 | NUR ---
PT HAS BP OF 188/71 WITH HR OF 67. PRN HYDRALAZINE GIVEN. PER MD ORDER. WILL CONTINUE TO MONITOR THE PT.
[2022-07-14 06:55] LABS: ANION GAP 14.5 (8-16); CARBON DIOXIDE 29.1 mmol/L (21-32); CHLORIDE 103 mmol/L (98-107); CREATININE 0.8 mg/dL (0.6-1.3); GLUCOSE 122 mg/dL (74-106); POTASSIUM 3.6 mmol/L (3.5-5.1); SODIUM SERUM 143 mmol/L (136-145); UREA NITROGEN, BLOOD 13 mg/dL (7-18)
--- NOTE | 2022-07-14 07:27 | NUR ---
ENDORSED PT TO DAY SHIFT RN FOR CONTINUITY OF CARE. PT IS STABLE.
[2022-07-14 08:00] VITALS: BP 124/84
--- NOTE | 2022-07-14 09:05 | NUR ---
PATIENT HAS BEEN SCREENED AND CATEGORIZED MODERATE NUTRITION RISK. PATIENT WILL BE SEEN WITHIN 3-5 DAYS OF ADMISSION. REVIEWED BY LUIS PARISH RD
--- NOTE | 2022-07-14 10:17 | NUR ---
PT. WITH LOW JAVON SCALE AT MODERATE TO HIGH RISK, CONTINUE TO FOLLOW PRESSURE INJURY PREVENTION INTERVENTIONS. -POSITIONING: TURN AND REPOSITION PATIENT Q 2H OR SOONER USE PILLOWS TO KEEP BONY PROMINENCES FROM DIRECT CONTACT WITH SURFACES USE REPOSITIONING WEDGES TO PROVIDE 30-DEGREE ANGLE FOR SIDE LYING POSITIONS OFFLOADING OR FOAM DRESSING TO ALL TUBING TO PREVENT MEDICAL DEVICES RELATED PRESSURE INJURY -RE-EVALUATING AND MANAGING INCONTINENCE MONITOR SKIN CONDITION DURING POSITION CHANGE DO NOT MASSAGE REDNESS, BONY PROMINENCES FREQUENT CHANCE-CARE AND PROVIDE BARRIER CREAMS PRN IF SOILING MOISTURE CONTROL BY OFFER BED CHILDERS/URINAL /ABSORBENT PAD TO WICK AND HOLD MOISTURE KEEP SKIN DRY AND PROTECT FROM FRICTION -MANAGE FRICTION/SHEAR/MOBILITY KEEP HOB AT THE LOWEST LEVEL OF ELEVATION NO MORE THAN 30 DEGREE UNLESS OTHERWISE CONTRAINDICATED USE LIFT SHEET OR TRANSFER DEVICE TO MOVE PATIENT AND PREVENT LATERAL SHEER. PROTECT HEELS, ELBOWS BONY PROMINENCES WITH SKIN BERRIES OR FOAM DRESSING IF EXPOSED TO FRICTION OFFLOAD BILATERAL HEELS BY PLACING PILLOWS UNDER CALVES AT ALL TIMES, UNLESS OTHERWISE CONTRAINDICATED -PRESSURE REDISTRIBUTION SURFACE THERAPY AMY ISOFLEX MATTRESS -NUTRITION: PLEASE FOLLOW RD RECOMMENDATIONS AND OFFER NUTRITION SUPPLEMENTS IF ORDERED. PLEASE CONTACT WOUND CARE NURSE FOR ANY QUESTION AND CHANGE OF WOUND CONDITION.
[2022-07-14] MEDS: POLYETHYLENE GLYCOL 17 GM/PKT PO SCH (10:35)
[2022-07-14 20:00] VITALS: BP 178/78
--- NOTE | 2022-07-14 20:50 | NUR ---
PT WITH ELEVATED BP-178/78, HR-74, PT ASYMPTOMATIC, NO SIGNS OF PAIN OR SOB, HYDRALAZINE PO GIVEN PRN, TOLERATED WELL, MONITORED CLOSELY.
[2022-07-15] VITALS: BP 162/89
--- NOTE | 2022-07-15 02:10 | NUR ---
PT INCONTINENT OF URINE AND STOOL, PERINEAL CARE DONE, REPOSITIONED AND OFFLOAD PRESSURE AREAS, CONTINUE TO MONITOR CLOSELY. Addendum: 07/15/22 at 0538 by Adolph Narvaez RN INCONTINENT OF URINE, NO BM AT THIS TIME
[2022-07-15 04:00] VITALS: BP 126/75
[2022-07-15] MEDS: PIPERACILLIN/TAZOBACTAM 2.25 GM in DEXTROSE 5% 50 ML IV SCH (04:22)
[2022-07-15 06:00] LABS: BASOPHILS % (AUTO) 0.5 % (0.0-2.0); EOSINOPHILS # (AUTO) 0.3 K/uL (0-0.4); EOSINOPHILS % (AUTO) 6.6 % (0.0-4.0); HEMATOCRIT 35.2 % (36-48); HEMOGLOBIN 12.1 g/dL (12.0-16.0); LYMPHOCYTES % (AUTO) 40.1 % (20.5-51.1); MEAN CORPUSCULAR HEMOGLOBIN 31 pg (27-31); MEAN CORPUSCULAR HGB CONC 34 g/dL (33-37); MEAN CORPUSCULAR VOLUME 90.8 fL (80-94); MONOCYTES # (AUTO) 0.5 K/uL (0.8-1.0); MONOCYTES % (AUTO) 10.8 % (1.7-9.3); NEUTROPHILS # (AUTO) 2.1 K/uL (1.8-7.7); PLATELET COUNT (AUTO) 233 K/uL (140-450); RED BLOOD CELL COUNT(AUTO) 3.87 MIL/uL (4.20-5.40); RED CELL DISTRIBUTION WIDTH 14.2 % (11.6-13.7)
[2022-07-15] MEDS: LEVOTHYROXINE 0.088 MG TAB PO SCH (06:00)
[2022-07-15 06:13] LABS: ANION GAP 9.2 (8-16); CHLORIDE 104 mmol/L (98-107); CREATININE 0.7 mg/dL (0.6-1.3); GLUCOSE 99 mg/dL (74-106); POTASSIUM 3.2 mmol/L (3.5-5.1); SODIUM SERUM 139 mmol/L (136-145); UREA NITROGEN, BLOOD 12 mg/dL (7-18)
--- NOTE | 2022-07-15 07:15 | NUR ---
PT ASLEEP, NO SIGNS OF DISTRESS, REPORT GIVEN TO DAVID ALFARO FOR CONTINUITY OF CARE.
[2022-07-15] MEDS: POLYETHYLENE GLYCOL 17 GM/PKT PO SCH (08:54)
[2022-07-15] MEDS: hydrALAZINE 10 MG TAB PO PRN (08:54)
--- NOTE | 2022-07-15 10:42 | NUR ---
RN UNABLE TO REACH [facility] FOR AN AUTH NUMBER FOR TRANSPORT. PATIENT WILL BE PICKED UP BY [facility] ([phone]) AT 7 PM TODAY, VAM[place]. ABOVE ENDORSED TO THE PATIENTS NURSE DOMINIC.
--- NOTE | 2022-07-15 12:51 | NUR ---
patient discharged via gurney with [facility], phone number is [phone]. both IV's removed before transfer without event. pt tolerated well. patient time of departure is 12:55 on 07/15/22. Pt vitals remain stable upon discharge.
== END 2022-07-15 13:00 | DRG 871 ==
LOC: MED 15:19 → MTU 18:11
PROVIDERS: ADMIT Family Medicine; ATTEND Family Medicine
PROC: 0T9B70Z Drainage of Bladder with Drainage Device, Via Natural or Artificial Opening (ICD-10-PCS; principal; 2022-07-13)
DX: A41.9 Sepsis, unspecified organism (principal); G93.41 Metabolic encephalopathy; J18.9 Pneumonia, unspecified organism; E44.0 Moderate protein-calorie malnutrition; N39.0 Urinary tract infection, site not specified; F03.90 Unspecified dementia, unspecified severity, without behavioral disturbance, psychotic disturbance, mood disturbance, and anxiety; E83.51 Hypocalcemia; I48.91 Unspecified atrial fibrillation; I11.0 Hypertensive heart disease with heart failure; I50.9 Heart failure, unspecified; Z20.822 Contact with and (suspected) exposure to COVID-19; Z88.2 Allergy status to sulfonamides; Z88.8 Allergy status to other drugs, medicaments and biological substances; Z79.899 Other long term (current) drug therapy; Z79.2 Long term (current) use of antibiotics; Z79.01 Long term (current) use of anticoagulants; Z68.20 Body mass index [BMI] 20.0-20.9, adult
CPT/HCPCS: 36415; 70450; 71045; 80048; 80053; 81001; 83605; 83735; 83880; 84484; 85025; 87040; 87081; 87086; 96365; 96366; 96367; 99285; J0456; J0696; J2001; J2543; J3480; J7030; J7060; Q0092

== ENCOUNTER 2023-11-17 09:28 | Inpatient (IN) | payer OTHER, MEDICAID ==
[~2023-11-17] VITALS: Ht 162.6 cm; Wt 59.9 kg
[~2023-11-17 09:28] MED LIST changes: -CEPH-588 PO; -LACT-103 PO; +LACT-191 PO; -LEVO-481 PO; +NITR0.4T2 SL
[2023-11-17 09:31] VITALS: PULSE 68; RESP 15; TEMP 98.3; O2SAT 97
[2023-11-17 09:51] LABS: BASOPHILS # (AUTO) 0.1 K/uL (0.00-0.22); BASOPHILS % (AUTO) 1.4 % (0.0-2.0); EOSINOPHILS # (AUTO) 0.2 K/uL (0-0.4); EOSINOPHILS % (AUTO) 3.2 % (0.0-4.0); HEMATOCRIT 39.7 % (36-48); HEMOGLOBIN 13.4 g/dL (12.0-16.0); LYMPHOCYTES # (AUTO) 1.7 K/uL (2.5-16.5); LYMPHOCYTES % (AUTO) 25.2 % (20.5-51.1); MEAN CORPUSCULAR HEMOGLOBIN 32 pg (27-31); MEAN CORPUSCULAR HGB CONC 34 g/dL (33-37); MEAN CORPUSCULAR VOLUME 94.3 fL (80-94); MONOCYTES # (AUTO) 0.6 K/uL (0.8-1.0); MONOCYTES % (AUTO) 8.3 % (1.7-9.3); NEUTROPHILS # (AUTO) 4.3 K/uL (1.8-7.7); NEUTROPHILS % (AUTO) 61.9 % (42.2-75.2); PLATELET COUNT (AUTO) 258 K/uL (140-450); RED BLOOD CELL COUNT(AUTO) 4.21 MIL/uL (4.20-5.40); RED CELL DISTRIBUTION WIDTH 13.5 % (11.6-13.7); WHITE BLOOD COUNT (AUTO) 6.9 K/uL (4.8-10.8)
[2023-11-17 10:01] LABS: ANION GAP 8.4 (8-16); CALCIUM 8.7 mg/dL (8.5-10.1); CARBON DIOXIDE 30.3 mmol/L (21-32); CHLORIDE 108 mmol/L (98-107); CREATININE 0.9 mg/dL (0.6-1.3); GLUCOSE 96 mg/dL (74-106); POTASSIUM 3.7 mmol/L (3.5-5.1); SODIUM SERUM 143 mmol/L (136-145); UREA NITROGEN, BLOOD 24 mg/dL (7-18)
[2023-11-17 10:12] LABS: INR 1.07 (0.8-1.2); PROTHROMBIN TIME 11.2 secs (10.8-13.4)
[2023-11-17 11:05] LABS: APPEARANCE,URINE CLEAR (CLEAR); BILIRUBIN,URINE NEGATIVE (NEGATIVE); BLOOD, URINE NEGATIVE (NEGATIVE); COLOR,URINE YELLOW (YELLOW); LEUKOCYTE ESTERASE ,URINE TRACE (NEGATIVE); NITRITE, URINE NEGATIVE (NEGATIVE); PROTEIN,URINE NEGATIVE (NEGATIVE); UGLUCOSE NEGATIVE (NEGATIVE)
[2023-11-17 11:26] LABS: BACTERIA,URINE OCCASSIONAL /HPF (None Seen); RBC,URINE 0-5 /HPF (0-5); SQUAMOUS EPITHELIAL CELL,UR 0-3 (FEW) /LPF (0-3 (FEW))
[2023-11-17] MEDS ORDERED: cefTRIAXone 1,000 MG VIAL ONE (11:47)
[2023-11-17] MEDS ORDERED: LOTC TP (11:52)
[2023-11-17] MEDS ORDERED: FOSF3PAC PO (11:52)
[2023-11-17] MEDS ORDERED: ONDANSETRON 4 MG/2 ML VIAL IVP PRN (13:05)
[2023-11-17] MEDS ORDERED: ACETAMINOPHEN 325 MG TAB PO PRN (13:05)
[2023-11-17] MEDS ORDERED: ALBUTEROL 0.083% 2.5 MG/3 ML NEBU INH PRN (13:05)
[2023-11-17] MEDS: NACL 0.9% 1,000 ML IV SCH (13:20)
[2023-11-17 13:21] VITALS: PULSE 82; RESP 16; O2SAT 97
[2023-11-17] MEDS: LORazepam 2 MG/ML VIAL ONE (15:55)
[2023-11-17 16:00] VITALS: BP 142/70; PULSE 77; PULSE 80; RESP 18; TEMP 98; O2SAT 98
[2023-11-17 20:00] VITALS: PULSE 75; RESP 18; O2SAT 98
[2023-11-17] MEDS: DABIGATRAN ETEXILATE MESYLAT 75 MG CAP PO SCH (21:52)
[2023-11-17 22:51] VITALS: BP 174/84; PULSE 75; RESP 18; TEMP 97.6; O2SAT 98
[2023-11-17 22:52] VITALS: PULSE 74
[2023-11-17] MEDS: hydrALAZINE 20 MG/ML VIAL IVP PRN (23:20)
[2023-11-18] VITALS (7 sets, daily range): BP systolic 121–171; BP diastolic 61–101; PULSE 60–111; RESP 18; TEMP 97.3–98.7; O2SAT 95–98
[2023-11-18] MEDS: LEVOTHYROXINE 0.088 MG TAB PO SCH (06:25)
[2023-11-18] MEDS: CHOLECALCIFEROL 1,000 IU TAB PO SCH (08:50)
[2023-11-18] MEDS: METOPROLOL SUCCINATE 50 MG TABER PO SCH (08:50)
[2023-11-18] MEDS: LORazepam 2 MG/ML VIAL IM/IVP PRN (12:52)
[2023-11-18 16:06] LABS: BASOPHILS # (AUTO) 0.1 K/uL (0.00-0.22); BASOPHILS % (AUTO) 0.4 % (0.0-2.0); EOSINOPHILS # (AUTO) 0.1 K/uL (0-0.4); EOSINOPHILS % (AUTO) 0.4 % (0.0-4.0); HEMATOCRIT 40.4 % (36-48); HEMOGLOBIN 13.3 g/dL (12.0-16.0); LYMPHOCYTES # (AUTO) 0.9 K/uL (2.5-16.5); LYMPHOCYTES % (AUTO) 7.3 % (20.5-51.1); MEAN CORPUSCULAR HEMOGLOBIN 31 pg (27-31); MEAN CORPUSCULAR HGB CONC 33 g/dL (33-37); MEAN CORPUSCULAR VOLUME 94.6 fL (80-94); MONOCYTES # (AUTO) 0.7 K/uL (0.8-1.0); NEUTROPHILS # (AUTO) 10.6 K/uL (1.8-7.7); NEUTROPHILS % (AUTO) 85.9 % (42.2-75.2); PLATELET COUNT (AUTO) 252 K/uL (140-450); RED BLOOD CELL COUNT(AUTO) 4.27 MIL/uL (4.20-5.40); RED CELL DISTRIBUTION WIDTH 13.8 % (11.6-13.7); WHITE BLOOD COUNT (AUTO) 12.3 K/uL (4.8-10.8)
[2023-11-18 16:17] LABS: ANION GAP 10.9 (8-16); CALCIUM 8.8 mg/dL (8.5-10.1); CARBON DIOXIDE 25.7 mmol/L (21-32); CHLORIDE 107 mmol/L (98-107); CREATININE 0.7 mg/dL (0.6-1.3); GLUCOSE 105 mg/dL (74-106); POTASSIUM 3.6 mmol/L (3.5-5.1); SODIUM SERUM 140 mmol/L (136-145); UREA NITROGEN, BLOOD 13 mg/dL (7-18)
[2023-11-18] MEDS: diphenhydrAMINE 50 MG/ML VIAL IVP PRN (17:00)
[2023-11-19] VITALS (7 sets, daily range): BP systolic 101–171; BP diastolic 57–116; PULSE 57–95; RESP 17–18; TEMP 97.3–98.6; O2SAT 93–98
[2023-11-19 07:17] LABS: BASOPHILS # (AUTO) 0.1 K/uL (0.00-0.22); BASOPHILS % (AUTO) 1.1 % (0.0-2.0); EOSINOPHILS # (AUTO) 0.3 K/uL (0-0.4); HEMATOCRIT 38.8 % (36-48); HEMOGLOBIN 13.3 g/dL (12.0-16.0); LYMPHOCYTES # (AUTO) 1.3 K/uL (2.5-16.5); LYMPHOCYTES % (AUTO) 15.3 % (20.5-51.1); MEAN CORPUSCULAR HEMOGLOBIN 32 pg (27-31); MEAN CORPUSCULAR HGB CONC 34 g/dL (33-37); MEAN CORPUSCULAR VOLUME 92.6 fL (80-94); MONOCYTES # (AUTO) 0.9 K/uL (0.8-1.0); MONOCYTES % (AUTO) 10.2 % (1.7-9.3); NEUTROPHILS # (AUTO) 6.2 K/uL (1.8-7.7); NEUTROPHILS % (AUTO) 70.4 % (42.2-75.2); PLATELET COUNT (AUTO) 251 K/uL (140-450); RED BLOOD CELL COUNT(AUTO) 4.19 MIL/uL (4.20-5.40); RED CELL DISTRIBUTION WIDTH 13.2 % (11.6-13.7); WHITE BLOOD COUNT (AUTO) 8.8 K/uL (4.8-10.8)
[2023-11-19 07:30] LABS: ANION GAP 11.3 (8-16); CALCIUM 8.7 mg/dL (8.5-10.1); CARBON DIOXIDE 27.5 mmol/L (21-32); CHLORIDE 108 mmol/L (98-107); CREATININE 0.8 mg/dL (0.6-1.3); GLUCOSE 90 mg/dL (74-106); POTASSIUM 3.8 mmol/L (3.5-5.1); SODIUM SERUM 143 mmol/L (136-145); UREA NITROGEN, BLOOD 11 mg/dL (7-18)
[2023-11-19] MEDS: CYANOCOBALAMIN 1,000 MCG TAB PO SCH (09:00)
[2023-11-20] VITALS: BP 169/61; PULSE 63; PULSE 90; RESP 18; TEMP 97.9; O2SAT 100
[2023-11-20 04:00] VITALS: BP 135/91; PULSE 65; PULSE 85; RESP 19; TEMP 97.5; O2SAT 97
[2023-11-20 06:57] LABS: BASOPHILS # (AUTO) 0.1 K/uL (0.00-0.22); EOSINOPHILS # (AUTO) 0.2 K/uL (0-0.4); EOSINOPHILS % (AUTO) 3.4 % (0.0-4.0); HEMATOCRIT 36.9 % (36-48); HEMOGLOBIN 12.5 g/dL (12.0-16.0); LYMPHOCYTES # (AUTO) 1.5 K/uL (2.5-16.5); LYMPHOCYTES % (AUTO) 20.9 % (20.5-51.1); MEAN CORPUSCULAR HEMOGLOBIN 32 pg (27-31); MEAN CORPUSCULAR HGB CONC 34 g/dL (33-37); MONOCYTES # (AUTO) 0.8 K/uL (0.8-1.0); MONOCYTES % (AUTO) 11.8 % (1.7-9.3); NEUTROPHILS # (AUTO) 4.5 K/uL (1.8-7.7); NEUTROPHILS % (AUTO) 62.9 % (42.2-75.2); PLATELET COUNT (AUTO) 248 K/uL (140-450); RED BLOOD CELL COUNT(AUTO) 3.97 MIL/uL (4.20-5.40); RED CELL DISTRIBUTION WIDTH 13.2 % (11.6-13.7); WHITE BLOOD COUNT (AUTO) 7.1 K/uL (4.8-10.8)
[2023-11-20 07:04] LABS: ANION GAP 11.7 (8-16); CALCIUM 8.5 mg/dL (8.5-10.1); CARBON DIOXIDE 28.5 mmol/L (21-32); CHLORIDE 106 mmol/L (98-107); CREATININE 0.9 mg/dL (0.6-1.3); GLUCOSE 92 mg/dL (74-106); POTASSIUM 4.2 mmol/L (3.5-5.1); SODIUM SERUM 142 mmol/L (136-145); UREA NITROGEN, BLOOD 19 mg/dL (7-18)
[2023-11-20 08:00] VITALS: BP 130/58; PULSE 65; PULSE 74; RESP 18; TEMP 98.4; O2SAT 98
== END 2023-11-20 11:55 | DRG 682 ==
LOC: MED 09:28 → MTU 13:03
PROVIDERS: ADMIT Family Medicine; ATTEND Family Medicine
DX: N17.0 Acute kidney failure with tubular necrosis (principal); G93.41 Metabolic encephalopathy; I13.0 Hypertensive heart and chronic kidney disease with heart failure and stage 1 through stage 4 chronic kidney disease, or unspecified chronic kidney disease; N39.0 Urinary tract infection, site not specified; I48.20 Chronic atrial fibrillation, unspecified; E03.9 Hypothyroidism, unspecified; I50.9 Heart failure, unspecified; N18.9 Chronic kidney disease, unspecified; Z79.899 Other long term (current) drug therapy; Z88.1 Allergy status to other antibiotic agents
CPT/HCPCS: 36415; 70450; 71045; 72125; 72170; 73562; 80048; 81001; 82948; 83605; 84484; 85025; 85610; 85730; 87040; 87081; 87086; 93005; 96365; 97110; 97112; 97116; 97163-GP; 97530; 99285; J0360; J0696; J1200; J2060; J3420; J7060